=== PATIENT | male | born 1980 ===

== ENCOUNTER 2017-10-25 14:42 | Emergency (ER) | payer SELFPAY ==
[~2017-10-25] VITALS: Ht 182.9 cm; Wt 108.9 kg
[2017-10-25 14:46] VITALS: BP 134/85
[2017-10-25] MEDS ORDERED: OXYC20TA99 PO (14:51)
--- NOTE | 2017-10-25 14:51 | ER Report ---
History and Physical Time Seen By MD: 14:50 Hx. 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 out of pain meds. can't walk well. his docs are in [place] HPI/ROS CHIEF COMPLAINT: Right foot pain HISTORY OF PRESENT ILLNESS: This is a 37-year-old male who presents to the emergency department for right foot pain patient has chronic right foot pain. Patient states he is here for a refill on his pain medications. Patient has no other complaints at this time no acute injuries. No coughs, colds, H, chills, nausea, vomiting, diarrhea, chest pain or shortness of breath. Patient was also seen by another provider requesting pain medications earlier today. 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 Constitutional Vital Sign - Last 24 Hours 10/25/17 14:46 Temp 99.0 Pulse 77 Resp 14 B/P (MAP) 134/85 Pulse Ox 95 O2 Delivery Room Air Physical Exam General appearance: Alert no distress. Respiratory: Chest is non tender, lungs are clear to auscultation. Cardiac: Regular rate and rhythm DIFFERENTIAL DIAGNOSIS: After history and physical exam differential diagnosis was considered for chronic right foot pain secondary to surgeries. Medical Decision Making ED Course/Re-evaluation ED Course The patient was admitted to a room. A history physical were obtained. Differential diagnoses were considered. We did get a phone call from one of local providers regarding this patient who had been at her office earlier today talking about the leg pain and foot pain and she said that she was unable to prescribe him pain medications and patient became upset and left the practitioners office then said that he was going to the emergency department. She does arrive walks back to the room without difficult these. 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 Patient states that he has had a lot of pain and has been on pain management for about 5 years with 10 mg oxycodone as well as fentanyl patches. I did review the [facility] and he last had a prescription filled September 282017, 100 g fentanyl patches. I did call the last prescriber on the list Ranjan Franks from [place] to confirm that he had in fact prescribed the medications. He told me that with this patient we should get him out of our department as soon as possible and not prescribe him any pain medications. The patient also told me that he's been here in [place] for about 2 weeks and is from [place] however on the [employer] website he's been in [place] since September 2016 and has been seen several times across the state [facility] and has been prescribed a variety of narcotic pain medications including fentanyl and oxycodone. The home addresses of the patient on the [employer] website has changed several times as well. I did also tell the patient that in the emergency department course we're not able to prescribe chronic pain medications as he should seek a chronic pain specialist who can manage his pain medications did go on to say that if he does have a contract with a prescriber in [place] that if we were to prescribe him anything oftentimes this will avoid his contract with the prescriber. He said that he goes back and forth between [place] and [place]. I also informed the patient that I would not be able to give him any medications while he was in the emergency department as well as a prescription because it is our policy in accordance to the [facility] that emergency departments are not to prescribe medications for chronic pain management. The patient became silent and said okay "well you do not do anything for me then" I said not as far as pain management goes not able to do anything today. I told patient that I would go ahead and get him ready for discharge and the patient was discharged home without incident. Decision to Disposition Date: Oct 25, 2017 Decision to Disposition Time: 15:16 Depart Departure Latest Vital Signs Vital Signs Date Time Temp Pulse Resp B/P (MAP) Pulse Ox O2 Delivery O2 Flow Rate FiO2 10/25/17 14:46 99.0 77 14 134/85 95 Room Air Impression: Primary Impression: Right foot pain Additional Impression: Chronic pain Condition: Condition Unchanged Disposition: HOME OR SELF-CARE Patient Instructions: Chronic Pain (ED) Additional Instructions: Drink plenty of fluids. Get plenty of rest. Take medications as needed. Be sure to follow up with your primary care provider for pain control. I am sorry we cannot treat chronic pain in the Emergency Department. May return to the ED for any other needs you may have. Problem Qualifiers Additional Impression: Chronic pain Chronic pain type: chronic pain syndrome Qualified Codes: G89.4 - Chronic pain syndrome [employer] TECH[employer]ICIAN-[employer] Oct 25, 2017 14:51
[2017-10-25] MEDS ORDERED: FENT1PAT (14:52)
== END 2017-10-25 15:29 | disposition home or self-care (01) ==
LOC: ER 14:54
DX: M79.671 Pain in right foot (principal); G89.4 Chronic pain syndrome
CPT/HCPCS: 99282